=== PATIENT | female | born 1960 | race Asian ===

== ENCOUNTER 2019-04-06 14:32 | Emergency (ER) | payer OTHER ==
[~2019-04-06] VITALS: Ht 157.5 cm; Wt 72.7 kg
[2019-04-06] MEDS ORDERED: MECL-111 PO (14:45)
[2019-04-06] MEDS ORDERED: MECLIZINE HCL 25 MG TABLET PO ONE (16:00)
[2019-04-06] MEDS ORDERED: CloNIDine HCL 0.1 MG TABLET PO ONE (16:00)
[2019-04-06 16:35] VITALS: BP 138/82
== END 2019-04-06 17:51 | disposition home or self-care (01) ==
LOC: EMS 14:35
DX: I10 Essential (primary) hypertension (principal); R42 Dizziness and giddiness
CPT/HCPCS: 93005